=== PATIENT | female | born 1945 | race Caucasian/White ===

== ENCOUNTER → 2023-11-05 14:48 | Outpatient (REF) | payer MEDICARE, SELFPAY | LOC: RCS 14:48 | PROVIDERS: ATTENDING PHYSICIAN Internal Medicine Cardiovascular Disease | DX: I31.39 Other pericardial effusion (noninflammatory) (principal) | CPT/HCPCS: 93306 ==

== ENCOUNTER → 2024-04-16 11:02 | Outpatient (REF) | payer MEDICARE, SELFPAY | LOC: RCS 11:02 | PROVIDERS: ATTENDING PHYSICIAN Internal Medicine Rheumatology; REFERRING PHYSICIAN Internal Medicine Cardiovascular Disease | DX: M34.9 Systemic sclerosis, unspecified (principal); M34.0 Progressive systemic sclerosis; Z79.899 Other long term (current) drug therapy | CPT/HCPCS: 93306 ==

== ENCOUNTER 2024-07-16 15:33 | Inpatient (IN) | payer MEDICARE, SELFPAY ==
[2024-07-16] VITALS (7 sets, daily range): BP systolic 101–159; BP diastolic 54–65; BMI 23.6
--- NOTE | 2024-07-16 11:34 | ED.GENMED ---
History of Present Illness
General
Chief Complaint: Fall
Time Seen by Provider: 07/16/24 10:59
History of Present Illness
History of Present Illness:
79-year-old female with history of systemic scleroderma and hepatic cirrhosis presents to the emergency department for evaluation of generalized weakness. States she was unable to get herself out of bed today which resulted in a fall, denies head
strike or any injuries as a result of said fall. She was noted to be hypoxic on arrival and does not typically require baseline oxygen. Does report intermittent dry cough and shortness of breath for the past 2 weeks as well. Additionally notes
abdominal distention has been ongoing for the past 4 weeks.
Review of Systems
Review of Systems
Allergies reviewed?: Yes
All Other Systems: ROS reviewed and negative except as documented in HPI and ROS
Phy Exam
Physical Exam
Physical Exam:
GEN: Thin and frail appearing, underweight, no immediate distress
HEENT: Oral mucosa dry, no scleral icterus
Cardiac: Regular rate and rhythm, no murmurs
Lung: Mildly tachypneic, no accessory muscle use. Markedly diminished right-sided breath sounds, clear left breath sounds
Abdomen: Severe distention, grossly nontender
MSK: No gross deformity or injuries, moderate nonpitting edema to the lower extremities
Skin: Good color, no pallor or jaundice, no rashes
Neuro: AO x3, moves all extremities freely
Psych: Calm, cooperative
Course
Orders/Labs/Results
Orders:
Orders
07/16/24 11:17
Electrocardiogram (*1) Urgent
Reason for Study: Shortness of Breath
EKG- Treatment ONCE
CR Chest - 2 Views Urgent
Comment:
Reason For Exam: SOB
07/16/24 11:21
Complete Blood Count/With Diff Urgent
Comprehensive Metabolic Panel Urgent
NT-proBNP Urgent
Troponin I Urgent
07/16/24 12:16
CT Abd/Pel (IV only)-DH only Urgent
Comment:
Reason For Exam: abd distention
Urinalysis Reflex To Culture Urgent
07/16/24 14:30
Prothrombin Time Urgent
07/16/24 14:46
NH3 [Ammonia] Urgent
07/16/24 15:07
Obtain Records As Directed
Dates of Information to be Released: [id number]
Type of Information Requested: Radiology Results
Last Office Visit H&P
If Other, list type of info requested: Abd MRI, Office Note
Obtain Records from: Dr. Kinney
07/16/24 15:17
Admit/Transfer Patient As Directed
Co-Sign Provider:
Level of Care: Inpatient admission
Assign to:: Telemetry
Physician / Group: Htay
Diagnosis: Ascites
Reason for Telemetry: Arrhythmia
Date to Stop Telemetry: 07/19/24
Time to Stop Telemetry: 11:00
Reason for Hospitalization: paracentesis
Expected length of stay greater than two midnights?: Yes
ELOS- Estimated Length of Stay in days: 3
I certify the patient meets the requirements for IP care: Yes
07/16/24 15:18
PRN Pain Medication Management As Directed
May give lesser potent ordered pain med per pt: Yes
preference::
Protocol:: Medication orders for pain may be administered in a
manner that supports deferring to patient preference
when the pt is:
- Requesting an ordered lesser potent pain medication.
Least to most potent pain medications are defined
as: acetaminophen < NSAID < tramadol < opioids
(morphine, oxycodone, hydromorphone).
- Requesting a lesser dose of the same medication IF
ORDERED.
- Requesting a less intrusive route of administration
if both routes are prescribed by the provider (PO <
IV).
07/16/24 15:19
Code Status As Directed
Resuscitation Status: Do not resuscitate
Reached after discussion with pt or family/Healthcare POA: Yes
DNR Bracelet Application ONCE
07/17/24 06:00
AFP Male/Tumor Marker IN AM
07/19/24 11:00
DC Protocol for Telemetry ONCE
Abnormal Lab Results
07/16/24 07/16/24
11:21 14:30
RBC 3.68 L 10^6/uL
(4.20-5.40)
Hct 36.9 L %
(37.0-47.0)
MCV 100.3 H fL
(81.0-99.0)
MCH 33.2 H pg
(27.0-31.0)
RDW 18.3 H %
(11.5-14.5)
MPV 11.0 H fL
(7.4-10.4)
Abs Immat Gran (auto) 0.1 H 10^3/uL
(0-0.05)
Absolute Lymphs (auto) 0.5 L 10^3/uL
(1.2-3.4)
Immature Gran % 0.8 H %
(0-0.5)
Neutrophils % 84.1 H %
(42.2-75.2)
Lymphocytes % 6.2 L %
(20.5-51.1)
PT 17.4 H Sec
(11.4-14.6)
Chloride 113 H mmol/L
(98-107)
Total Bilirubin 1.9 H mg/dl
(0.2-1.3)
Alkaline Phosphatase 133 H U/L
(38-126)
Total Protein 5.2 L g/dl
(6.3-8.2)
Albumin 3.2 L g/dl
(3.5-5.0)
07/16/24 11:21
07/16/24 11:21
Vital Signs
Initial and Last Documented VS:
Initial Vital Signs
BP
123/57
07/16/24 11:00
Last Documented Vital Signs
Temp Pulse Resp BP Pulse Ox
97.7 F 60 21 159/63 98
07/16/24 11:01 07/16/24 14:30 07/16/24 15:00 07/16/24 13:00 07/16/24 15:00
MDM/Problems Addressed
MDM/Problems Addressed:
79-year-old female presenting with weakness after a minor fall. No apparent injuries after the fall. She has noted to be markedly volume overloaded with anasarca, most likely hepatic etiology. Will likely need paracentesis as well as potential
thoracentesis. She is known to have a moderate pericardial effusion however no clinical signs of cardiac instability suggesting cardiac tamponade. Will admit to the hospitalist service for further workup and management
*Critical Care Note
Total Time (30-74mins, 75-104mins- exclusive of procedures): Not Applicable
ED Attending Note
-
Portions of this chart may have been created with voice recognition software.� Occasional wrong word or��sound alike� substitutions may have occurred due to the inherent limitations of voice recognition software.
Discharge Plan
Departure
Patient Disposition: Admit
Date of Disposition: 07/16/24
Time of Disposition: 14:16
Admit to: Med/Surg
Presentation/result/management discussed w/ accepting MD/DO: Hospitalist
Discharge Problem:
Cirrhosis of liver with ascites, Acute respiratory insufficiency
Interventions
Interventions:
*Risk Screen - Suicide Last Done: 07/16/24 11:01
*General Assessment Last Done: 07/16/24 11:01
*Neglect/Abuse Screening Last Done: 07/16/24 11:01
*ED- Fall Risk Assessment Last Done: 07/16/24 11:01
*ED COVID-19 Vaccine History Last Done: 07/16/24 11:01
ED-Musculoskeletal Assessment Last Done: 07/16/24 11:01
ED- Neurological Assessment Last Done: 07/16/24 11:01
ED-Skin Assessment Last Done: 07/16/24 11:01
[2024-07-16 11:35] LABS: % Basophils 0.7 % (0-2); % Immature Granulocytes 0.8 % (0-0.5); % Lymphocytes 6.2 % (20.5-51.1); % Monocytes 6.2 % (1.7-9.3); % Neutrophils 84.1 % (42.2-75.2); Absolute Basophils 0.1 10^3/uL (0-0.2); Absolute Eosinophils 0.2 10^3/uL (0-0.7); Absolute Immature Granulocytes 0.1 10^3/uL (0-0.05); Absolute Lymphocytes 0.5 10^3/uL (1.2-3.4); Absolute Monocytes 0.5 10^3/uL (0.1-0.6); Absolute Neutrophils 6.2 10^3/uL (1.4-6.5); Hematocrit 36.9 % (37.0-47.0); Hemoglobin 12.2 g/dL (12.0-16.0); Mean Corp Hgb Conc. 33.1 g/dL (33.0-37.0); Mean Corpuscular Hgb 33.2 pg (27.0-31.0); Mean Corpuscular Volume 100.3 fL (81.0-99.0); Nucleated Red Blood Cells % 0 %; Platelet Count 204 10^3/uL (130-400); Red Blood Cell Count 3.68 10^6/uL (4.20-5.40); Red Cell Dist. Width 18.3 % (11.5-14.5); White Blood Cell Count 7.4 10^3/uL (4.8-10.8)
[2024-07-16 11:44] LABS: ALT (SGPT) 13 U/L (0-35); AST (SGOT) 26 U/L (14-36); Albumin 3.2 g/dl (3.5-5.0); Alkaline Phosphatase 133 U/L (38-126); Blood Urea Nitrogen 10 mg/dl (7-17); Calcium 9.2 mg/dl (8.4-10.2); Carbon Dioxide 22 mmol/L (22-30); Chloride 113 mmol/L (98-107); Estimated Creatinine Clearance 49 ml/min; Glucose 90 mg/dl (70-99); Potassium 3.6 mmol/L (3.5-5.1); Sodium 141 mmol/L (135-145); Total Bilirubin 1.9 mg/dl (0.2-1.3); Total Protein 5.2 g/dl (6.3-8.2); eGFR > 60.00
[2024-07-16 11:55] LABS: NT-proBNP 789 pg/ml; Troponin I 0.013 ng/ml
--- NOTE | 2024-07-16 14:39 | W.PN.UPDATE ---
Addendum entered and electronically signed by Israel Mckinney MD 07/16/24 15:26:
Correction: patient is DNR confirmed at bed side in the presence of son and AP , not full code
Original Note:
Update Note
Progress Note Update
This note serves as an addendum to the H&P by parts counterman CECELIA Praveena ABRAHAM
HPI:
79F No prior DH Visits HX systemic scleroderma and hepatic cirrhosis seen at ER
- for evaluation of generalized weakness.
- was unable to get herself out of bed today which resulted in a fall
- denies head strike or any injuries as a result of said fall.
- report intermittent dry cough and shortness of breath for the past 2 weeks as well.
- abdominal distention has been ongoing for the past 4 weeks
At ER:
- hypoxic on arrival and does not typically require baseline oxygen.
Reviewed VS:
Vital Signs
Temp Pulse Resp BP Pulse Ox
97.7 F 69 20 159/63 93
07/16/24 11:01 07/16/24 13:15 07/16/24 13:15 07/16/24 13:00 07/16/24 13:15
PE
Gen: Thin and frail, looks underweight, no immediate distress
HEENT: no scleral icterus
Neck: supple
Lungs: tachypneic,, markedly diminished right-sided breath sounds, clear left breath sounds
Cor: RRR S1 S2
Abdomen: Severe distention, grossly nontender
SLIP COVER MAKER: AAO3
MS:
Psych: good insight , good judgement
Labs
07/16/24 07/16/24
11:21 14:30
WBC 7.4
Hgb 12.2
Plt Count 204
INR Pending
Chloride 113 H
Creatinine 0.7
eGFR > 60.00
Total Bilirubin 1.9 H
AST 26
ALT 13
Alkaline Phosphatase 133 H
Troponin I 0.013
Tpo-N-Qvbtiwmxphm Pept 789
Total Protein 5.2 L
Albumin 3.[address] AP (IV only)- only
- Large volume abdominopelvic ascites.
- Moderate pericardial effusion.
- Small bilateral pleural effusions, right greater than left.
- Hepatic cirrhosis.
- 1.2 cm enhancing lesion at the periphery of the posterior inferior right hepatic lobe.
- This is concerning for a small hepatocellular carcinoma in the setting of hepatic cirrhosis.
- Portal enteropathy.
04/16/24 TTE
- LVEF 60-65%, by visual assessment.
- No regional wall motion abnormalities are seen.
- Stage II diastolic dysfunction suggestive of abnormal relaxation and increased filling pressures.
-Normal right ventricular size and function.
-Severely dilated left atrium. Moderately to severely dilated right atrium.
-Moderate regurgitation.
-Mild aortic stenosis; peak/mean gradients 21/10 mmHg, calculated FIONA 1.5 cm2.
No aortic regurgitation is seen.
-Small to moderate pericardial effusion anteriorly and posteriorly
(noncircumferential); measures greatest at 1.3 cm posteriorly.
No evidence of hemodynamic compromise.
-Left pleural effusion present.
NO PRIOR hospitalist admission:
ASSESSMENT & PLAN
Pending Rx reconciliation
Anasarca
Large volume abdominopelvic ascites.
Moderate pericardial effusion.
Small bilateral pleural effusions, right greater than left.
-Underlying Hepatic cirrhosis.
-c/w Spironolactone
- IR consult for Dx-tic and Rx-tic paracentesis
- GI consult ( Known to Dr Gutierrez from [facility] and Dr Douglass from GI )
1.2 cm enhancing lesion at the periphery of the posterior inferior right hepatic lobe.
- concerning for a small hepatocellular carcinoma in the setting of hepatic cirrhosis.
- To obtain prior MRI of liver form [facility] ( requested )
- MRI MRI without and with intravenous contrast
- AFP in AM
Clinically no evidence of hepatic encephalopathy
General weakens and acute gait dysfunction
Use walker at home for chr ambulatory dysfunction
Independently living
- urgent NH3 level
- PT/OT
HX secondary PHT suspect due to systemic scleroderma
- c/w DISTRIBUTOR SALES MANAGER Sildenafil & Ambrisentan
HX valvular heart dz and clinical systolic murmur
- Moderate mitral regurgitation.
- Mild aortic stenosis; peak/mean gradients 21/10 mmHg, calculated FIONA 1.5 cm2.
- No aortic regurgitation is seen.
HX systemic scleroderma
- on MTX
DVT Px: SCD
Full code
IP MS
--- NOTE | 2024-07-16 14:39 | HPS.HSE ---
Family Physician
-
Family Physician: Shahid Ponce Jr.
Chief Complaint
-
Weakness and Abdominal Distension
History of Present Illness
Patient is a 79 y/o female past medical history of systemic scleroderma who presents with weakness and increasing abdominal distention. Patient reports abdomen has slowly become distended over the past 6 weeks. She is unable to consume a lot of
food as feel full very quickly due to the distention. She reports worsening weakness which resulted in a fall today which prompter her presentation to the emergency department. She reports mild shortness of the breath over the past few weeks. She
denies fevers, sweats or chills.
Medical History
Past Medical History
Past Medical History: Reports Other
Additional Past Medical History:
Systemic Scleroderma
Pulmonary Hypertension
Cirrhosis
Pericardial Effusion
Past Surgical History: Reports Other
Additional Past Surgical History:
Appendectomy
Hysterectomy
Tonsillectomy
Social History
Tobacco: Non-smoker
Alcohol: None
Family History
Family History: Not pertinent
Allergies / Home Medications
Allergies reflects when Allergies were last updated in [employer].
Home Medications with original date entered in [employer]
Allergy/Medication List:
Allergies
Allergy/AdvReac Type Severity Reaction Status Date / Time
No Known Allergies Allergy Verified 07/16/24 11:23
Home Medications
albuterol sulfate 90 mcg/actuation aerosol inhaler 2 puff inhalation Q4HPRN PRN shortness of breath 07/16/24
ambrisentan 10 mg tablet 10 mg PO DAILY 07/16/24
amlodipine 2.5 mg tablet 2.5 mg PO HS 07/16/24
aspirin 81 mg chewable tablet 81 mg PO DAILY 07/16/24
folic acid 1 mg tablet 1 mg PO DAILY 07/16/24
methotrexate sodium 2.5 mg tablet 7.5 mg PO WEEKLY 07/16/24
pregabalin 200 mg capsule 200 mg PO BID 07/16/24
sildenafil (pulm.hypertension) 20 mg tablet 20 mg PO BID 07/16/24
spironolactone 100 mg tablet 100 mg PO DAILY 07/16/24
Review of Systems
-
A 12 point ROS was completed and negative except as noted: Yes
Constitutional: Denies Fever
Respiratory: Reports Trouble Breathing
Cardiac: Denies Chest Pain or Palpitations
Abdomen/GI: Reports Anorexia; Denies Abdominal Pain, Nausea or Vomiting
Physical Exam
Vital Signs
Vital Signs
Temp Pulse Resp BP Pulse Ox
97.7 F 69 20 159/63 93
07/16/24 11:01 07/16/24 13:15 07/16/24 13:15 07/16/24 13:00 07/16/24 13:15
Physical Exam
General: Comfortable, Conversant and Other (Frail appearing)
HEENT: Anicteric and Other (Dry lips )
Respiratory: Non Labored Respirations and Decreased Breath Sounds (Bilateral bases)
Cardiac: S1/S2, Regular Rhythm and Murmur (Systolic )
GI: Non Tender and Distended (Positive Fluid Wave)
Rectal: Deferred by Provider
Musculoskeletal: No Clubbing, No Cyanosis, No Edema and Other (Tapping of the finger tips consistent with scleroderma)
Skin: Warm and Dry
Neuro: Awake, Alert, Oriented and Nonfocal/grossly intact
Psych: Calm
Laboratory Results
-
07/16/24 11:21
07/16/24 11:21
Laboratory Results
Total Bilirubin 1.9 mg/dl (0.2-1.3) H 07/16/24 11:21
AST 26 U/L (14-36) 07/16/24 11:21
ALT 13 U/L (0-35) 07/16/24 11:21
Alkaline Phosphatase 133 U/L (38-126) H 07/16/24 11:21
Troponin I 0.013 ng/ml 07/16/24 11:21
Chest X-Ray:
Small bilateral pleural effusions.
Mild elevation of the right hemidiaphragm.
Findings suggesting moderate right lower lobe pneumonia.
Mild cardiomegaly
Abd/Pelvis CT Scan:
Large volume abdominopelvic ascites.
Moderate pericardial effusion.
Small bilateral pleural effusions, right greater than left.
Hepatic cirrhosis.
1.2 cm enhancing lesion at the periphery of the posterior inferior right hepatic lobe. This is concerning for a small hepatocellular carcinoma in the setting of hepatic cirrhosis. No prior imaging of the abdomen is currently available for direct
comparison. A follow-up abdominal MRI without and with intravenous contrast is recommended on a routine basis.
Portal enteropathy.
Echo April 2024:
No regional wall motion abnormality with EF 60-65%. Stage II diastolic dysfunction. Moderate mitral regurgitation. Mild aortic stenosis. Small to moderate pericardial effusion.
Data Reviewed
-
Diagnostic Radiology: Report Reviewed by me
CT Scan: Report Reviewed by me
Lab Data: Labs Reviewed by me
Old Records: Reviewed
Impression/Plan
-
New Onset Ascites suspect secondary to Cirrhosis
-Consult IR for diagnostic and therapeutic paracentesis
-Consult GI
Hepatic Lesion noted on CT scan
-Check Abd MRI
-Check AFP
-Patient has been following with Dr. Kinney and reports prior MRI about 9 months - Will attempt to obtain records
Pericardial Effusion
-Small/Moderate pericardial effusion seen on CT today and prior Echo from April
-Suspect likely stable
-Patient follows with Dr. Gee
-Consider repeat Echo
Systemic Scleroderma with secondary Pulmonary Hypertension and Cirrhosis
-Continue sildenafil and ambrisentan for pulmonary hypertension
-Continue amlodipine
-Continue pregabalin
-Patient maintained on methotrexate as outpatient
DVT proph: Lovenox
Code Status: DNR
[2024-07-16 14:51] LABS: PT 17.4 Sec (11.4-14.6)
--- NOTE | 2024-07-16 16:09 | CM ---
Reviewed the chart notes and spoke with the patient and her son at the bedside. The patient resides alone in a one story home with two steps to enter. The patient has a cane and shower chair in home. The patient reports no VN or SNF in the past.
The patient confirmed her pharmacy of choice is [facility]. CM continues to be available to patient/family and is monitoring medical plan for needs at discharge.
Plan: Discharge plans will depend on the patient's progress.
[2024-07-16 16:36] LABS: Ammonia < 9 umol/L (9-30)
[2024-07-16] MEDS: LOVENOX 40 MG SC (17:55)
[2024-07-16] MEDS: NORVASC 2.5 MG PO (20:25)
[2024-07-16] MEDS: REVATIO 20 MG PO (20:25)
[2024-07-16] MEDS: LYRICA 200 MG PO (20:25)
--- NOTE | 2024-07-16 20:36 | CON.GI ---
Consultation
-
Date/Time Consultation Requested: 07/16/24 4pm
Date/Time Consultation Performed: 07/16/24 at 6pm
Requesting Provider: josefina
Performing Provider: douglas
Reason for Consultation: abdominal distention
Medical History
Chief Complaint / HPI
Chief Complaint: abdominal distention
History of Present Illness:
Pt is a 79 y/o with a hx of scleroderma, raynauds, pulmonary htn and cirrhosis (pt denies) who feel out of bed and came to the hospital. She states that she has been having a recent increase in girth that is making it harder to move. She does not
have any pain or fevers. She has never had that before. She follows with Dr. Roy for her liver and thinks she has autoimmune disease. She denies confusion or prior ascites. She has also had several EGDs and colonoscopys in the past but not at
our institution. She did have a CT scan in the ER and it did show moderate amount of abdominal ascites as well as cirrhosis with a 1.2 liver lesion.
Past Medical History
Past Medical History: Other (scleroderma, pulmonary htn, cirrhosis)
Past Surgical History: Appendectomy and Gynecological
Social History
Tobacco: Non-Smoker
Family History
Family History: Reviewed & Not Pertinent
Allergies / Home Medications
Allergy/AdvReac Type Severity Reaction Status Date / Time
No Known Allergies Allergy Verified 07/16/24 11:23
�Medication �Instructions �Recorded
albuterol sulfate 90 mcg/actuation 2 puff inhalation Q4HPRN PRN 07/16/24
aerosol inhaler shortness of breath
ambrisentan 10 mg tablet 10 mg PO DAILY 07/16/24
amlodipine 2.5 mg tablet 2.5 mg PO HS 07/16/24
aspirin 81 mg chewable tablet 81 mg PO DAILY 07/16/24
folic acid 1 mg tablet 1 mg PO DAILY 07/16/24
methotrexate sodium 2.5 mg tablet 7.5 mg PO WEEKLY 07/16/24
pregabalin 200 mg capsule 200 mg PO BID 07/16/24
sildenafil (pulm.hypertension) 20 20 mg PO BID 07/16/24
mg tablet
spironolactone 100 mg tablet 100 mg PO DAILY 07/16/24
Review of Systems
-
All other systems: A 12 pt ROS was Negative except as stated above in HPI
Vital Signs
Temp Pulse Resp BP Pulse Ox
98.1 F 82 16 113/63 97
07/16/24 19:42 07/16/24 19:42 07/16/24 19:42 07/16/24 19:42 07/16/24 19:42
Physical Exam
Exam
General: No Apparent Distress
HEENT: Anicteric
Cardiac: S1/S2
GI: Non Tender and Distended (ascites)
Musculoskeletal: Other (sclerodactyly with shortened digits)
Neuro: Awake, Alert and Oriented
Psych: Calm
Results
WBC 7.4 10^3/uL (4.8-10.8) 07/16/24 11:21
Hgb 12.2 g/dL (12.0-16.0) 07/16/24 11:21
Hct 36.9 % (37.0-47.0) L 07/16/24 11:21
MCV 100.3 fL (81.0-99.0) H 07/16/24 11:21
Plt Count 204 10^3/uL (130-400) 07/16/24 11:21
Absolute Neuts (auto) 6.2 10^3/uL (1.4-6.5) 07/16/24 11:21
PT 17.4 Sec (11.4-14.6) H 07/16/24 14:30
INR 1.40 07/16/24 14:30
Sodium 141 mmol/L (135-145) 07/16/24 11:21
Potassium 3.6 mmol/L (3.5-5.1) 07/16/24 11:21
Chloride 113 mmol/L (98-107) H 07/16/24 11:21
Carbon Dioxide 22 mmol/L (22-30) 07/16/24 11:21
BUN 10 mg/dl (7-17) 07/16/24 11:21
Creatinine 0.7 mg/dL (0.6-1.0) 07/16/24 11:21
Calcium 9.2 mg/dl (8.4-10.2) 07/16/24 11:21
Total Bilirubin 1.9 mg/dl (0.2-1.3) H 07/16/24 11:21
AST 26 U/L (14-36) 07/16/24 11:21
ALT 13 U/L (0-35) 07/16/24 11:21
Alkaline Phosphatase 133 U/L (38-126) H 07/16/24 11:21
Assessment / Plan
-
Pt is a 79 y/o woman with a hx of scleroderma, CREST, pulmonary hypertension, cirrhosis ?AIH, liver lesion and new ascites. for now:
1. get records from Dr. Roy
2. check AFP
3. paracentesis for diagnostic and therapeutic purposes
4. not encephalopathic
5. follow PT and liver tests
Data Reviewed
-
CT Scan: Report Reviewed by me
-
-
Thank you for consultation and allowing me to participate in the patient's care. Please call the executive search consultant GI physician during the after hours with any questions or concerns.
[2024-07-17] VITALS (12 sets, daily range): BP systolic 77–117; BP diastolic 42–54; BMI 22.7
[2024-07-17] MEDS: TYLENOL 650 MG PO (02:11)
[2024-07-17 06:49] LABS: Hematocrit 30.8 % (37.0-47.0); Hemoglobin 10.2 g/dL (12.0-16.0); Mean Corp Hgb Conc. 33.1 g/dL (33.0-37.0); Mean Corpuscular Hgb 33.2 pg (27.0-31.0); Mean Corpuscular Volume 100.3 fL (81.0-99.0); Mean Platelet Volume 11.1 fL (7.4-10.4); Platelet Count 164 10^3/uL (130-400); Red Blood Cell Count 3.07 10^6/uL (4.20-5.40); Red Cell Dist. Width 18.3 % (11.5-14.5); White Blood Cell Count 5.8 10^3/uL (4.8-10.8)
[2024-07-17 06:59] LABS: ALT (SGPT) < 10 U/L (0-35); AST (SGOT) 22 U/L (14-36); Albumin 2.4 g/dl (3.5-5.0); Alkaline Phosphatase 99 U/L (38-126); Blood Urea Nitrogen 11 mg/dl (7-17); Calcium 8.9 mg/dl (8.4-10.2); Carbon Dioxide 23 mmol/L (22-30); Chloride 114 mmol/L (98-107); Estimated Creatinine Clearance 49 ml/min; Glucose 68 mg/dl (70-99); Potassium 3.6 mmol/L (3.5-5.1); Sodium 141 mmol/L (135-145); Total Bilirubin 1.3 mg/dl (0.2-1.3); Total Protein 4.3 g/dl (6.3-8.2); eGFR > 60.00
[2024-07-17 07:48] LABS: Urine Albumin 2+ (Neg - Trace); Urine Bilirubin 1+ (Negative); Urine Character Clear (Clear); Urine Color Yellow; Urine Glucose Negative (Negative); Urine Ketone Negative (Negative); Urine Leukocyte 1+ (Negative); Urine Nitrite Negative (Negative); Urine Occult Blood Negative (Negative); Urine Specific Gravity 1.015 (<1.030); Urine Urobilinogen 2+ (Neg - 1+)
[2024-07-17 07:56] LABS: Glucose - Point of Care 89 mg/dl (70-99)
[2024-07-17] MEDS: LYRICA 200 MG PO ×2 (07:59→21:09)
[2024-07-17] MEDS: FOLVITE 1 MG PO (07:59)
[2024-07-17] MEDS: REVATIO 20 MG PO (07:59)
[2024-07-17] MEDS: LOW STRENGTH ASPIRIN 81 MG PO (07:59)
[2024-07-17] MEDS: ALDACTONE 100 MG PO (08:01)
[2024-07-17 08:34] LABS: Urine Red Blood Cell 0-2 /HPF (0-2)
--- NOTE | 2024-07-17 09:21 | W.PN.HOSP.TC ---
Today's Communication/Plan
-
IV albumin. Paracentesis. MRCP. Echo
Assessment / Plan
Assessment / Plan
Physical Exam
General: Chronically ill, frail appearing
HEENT: Anicteric and Other (Dry lips )
Respiratory: Decreased breath sounds, no crackles or wheezes.
Cardiac: S1/S2, Regular Rhythm and systolic murmur
GI: Non Tender and Distended, positive fluid wave
Musculoskeletal: No Clubbing, No Cyanosis, No Edema and Other (Tapping of the finger tips consistent with scleroderma)
Skin: Warm and Dry
Neuro: Awake, Alert, Oriented and Nonfocal/grossly intact
Psych: Calm
A/P:
New Onset Ascites suspect secondary to Cirrhosis
- Status post diagnostic and therapeutic paracentesis. No preliminary evidence of SBP. Follow-up rest of the studies.
-GI consult appreciated
- Discussed with son at bedside
Hypotension post paracentesis (asymptomatic)
- Give IV albumin today
-Hold Norvasc, spironolactone, and sildenafil.
-Plan for echo
- Monitor blood pressure closely
Hepatic Lesion noted on CT scan
-Check Abd MRI
-Check AFP
-Patient has been following with Dr. Kinney and reports prior MRI about 9 months - Will attempt to obtain records
- Repeat LFTs and INR in a.m.
Pericardial Effusion
-Small/Moderate pericardial effusion seen on CT today and prior Echo from April
-No clear signs of tamponade physiology but will check echo
-Patient follows with Dr. Gee as outpatient.
- Will repeat Echo in a.m.
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
-Hold sildenafil for now.
-Patient tells me she is no longer on methotrexate due to elevated LFTs. Discontinued now.
-Continue pregabalin
DVT proph: Lovenox
Code Status: DNR
Total time spent on today's encounter was 52 minutes which included time spent in counseling the patient/family regarding diagnosis and treatment plan as listed above, goals of care, and symptom management. Case was discussed with nursing staff,
specialists, and care coordinators/case management. All labs and imaging personally reviewed by me. Remainder the time spent in detailed review of previous records, lab data, imaging, and other medical provider documentation.
Anticipated Discharge: > 48 hours
Subjective/Interval History
-
Date of Service: July 17, 2024
Patient looks frail overall. Had paracentesis by the time of my evaluation. Had transient hypotension as well. No lightheadedness, no nausea vomiting afebrile
Objective Data
-
Labs:
Laboratory Results
07/17/24
05:22
WBC 5.8
Hgb 10.2 L
Hct 30.8 L
Plt Count 164
Sodium 141
Potassium 3.6
Chloride 114 H
Carbon Dioxide 23
BUN 11
Creatinine 0.7
Glucose 68 L
Calcium 8.9
Total Bilirubin 1.3
AST 22
ALT < 10
Alkaline Phosphatase 99
Vital Signs:
Vital Signs
Temp Pulse Resp BP Pulse Ox
97.7 F 18 18 112/59 95
07/17/24 07:36 07/17/24 08:01 07/17/24 07:36 07/17/24 08:01 07/17/24 07:36
--- NOTE | 2024-07-17 11:28 | PTCARENOTE ---
RICK RN- stopped draining during paracentesis due to BP 90/44 map 58. 4500ml of yellow fluid drained. Dr. Kern and Dr Fang aware of bp and amount removed.
[2024-07-17 12:06] LABS: Body Fluid WBC 70 /CUMM
[2024-07-17 12:09] LABS: Body Fluid Second Tech AP
[2024-07-17 12:13] LABS: Body Fluid Albumin < 1.0 g/dl; Body Fluid Amylase < 30 U/L; Body Fluid LDH 84 U/L; Body Fluid Protein < 2.0 g/dl
--- NOTE | 2024-07-17 13:24 | W.PN.GI.CBS2 ---
Today's Communication / Plan
-
paracentesis
Assessment / Plan
-
Pt is a 79 y/o woman with a hx of scleroderma, CREST, pulmonary hypertension, cirrhosis ?AIH, liver lesion and new ascites. for now:
1. get records from Dr. Roy
2. await AFP
3. paracentesis
4. not encephalopathic
5. follow PT and liver tests
Subjective
Subjective
Date of Service: July 17, 2024
Pt seen before paracentesis, no abdominal pain
Objective
Data Reviewed
Laboratory Data:
Laboratory Results
07/17/24 05:22
07/17/24 05:22
Laboratory Results
PT 17.4 Sec (11.4-14.6) H 07/16/24 14:30
INR 1.40 07/16/24 14:30
Magnesium 2.0 mg/dl (1.6-2.3) 07/17/24 05:22
Total Bilirubin 1.3 mg/dl (0.2-1.3) 07/17/24 05:22
AST 22 U/L (14-36) 07/17/24 05:22
ALT < 10 U/L (0-35) 07/17/24 05:22
Alkaline Phosphatase 99 U/L (38-126) 07/17/24 05:22
Vital Signs and I&O:
Vital Signs
Temp Pulse Resp BP Pulse Ox
97.7 F 81 18 107/47 96
07/17/24 11:35 07/17/24 11:35 07/17/24 11:35 07/17/24 11:35 07/17/24 11:35
Physical Exam
Physical Exam
HEENT: Anicteric
Cardiology: S1 and S2
GI: Distended (ascites)
Neuro: Non Focal
[2024-07-17] MEDS: ALBUMIN 5% 250 IV ×2 (14:57→16:18)
[2024-07-17] MEDS: LOVENOX 40 MG SC (17:20)
[2024-07-18 03:11] VITALS: BP 110/55
[2024-07-18 06:00] VITALS: BMI 20.9
[2024-07-18 06:43] LABS: INR 1.52; PT 18.6 Sec (11.4-14.6)
[2024-07-18 06:51] LABS: Hematocrit 32.4 % (37.0-47.0); Hemoglobin 10.7 g/dL (12.0-16.0); Mean Platelet Volume 10.8 fL (7.4-10.4); Platelet Count 167 10^3/uL (130-400); Red Blood Cell Count 3.24 10^6/uL (4.20-5.40); Red Cell Dist. Width 17.8 % (11.5-14.5); White Blood Cell Count 6.3 10^3/uL (4.8-10.8)
[2024-07-18 07:03] LABS: ALT (SGPT) < 10 U/L (0-35); AST (SGOT) 21 U/L (14-36); Albumin 2.4 g/dl (3.5-5.0); Alkaline Phosphatase 84 U/L (38-126); Blood Urea Nitrogen 10 mg/dl (7-17); Calcium 8.5 mg/dl (8.4-10.2); Carbon Dioxide 25 mmol/L (22-30); Chloride 113 mmol/L (98-107); Estimated Creatinine Clearance 57 ml/min; Glucose 75 mg/dl (70-99); Potassium 3.5 mmol/L (3.5-5.1); Sodium 140 mmol/L (135-145); eGFR > 60.00
[2024-07-18] MEDS: FOLVITE 1 MG PO (07:39)
[2024-07-18] MEDS: LOW STRENGTH ASPIRIN 81 MG PO (07:39)
[2024-07-18] MEDS: LYRICA 200 MG PO ×2 (07:39→19:44)
[2024-07-18 07:46] VITALS: BP 105/48
--- NOTE | 2024-07-18 10:26 | W.PN.HOSP.TC ---
Addendum entered and electronically signed by Abrahan Ford MD 07/18/24 14:03:
MRI abd:
1. SEVERE HEPATIC CIRRHOSIS.
2. 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
3. LARGE VOLUME ASCITES.
4. Moderate pericardial effusion.
5. Mild cardiomegaly.
6. Moderate-sized right pleural effusion.
7. Severe right lower lobe and moderate left lower lobe subpleural airspace consolidation.
8. Severe discogenic degenerative disease at L4/L5.
9. Severe anasarca.
Case discussed with GI, adding Lasix/Aldactone. Cleared for d/c from GI's standpoint.
Echo pending.
PT/OT ordered
Goal for d/c tomorrow.
Total time spent on today's encounter was 50 minutes which included time spent in counseling the patient/family regarding diagnosis and treatment plan as listed above, goals of care, and symptom management. Case was discussed with nursing staff,
specialists, and care coordinators/case management. All labs and imaging personally reviewed by me. Remainder the time spent in detailed review of previous records, lab data, imaging, and other medical provider documentation.
Original Note:
Today's Communication/Plan
-
See plan
Assessment / Plan
Assessment / Plan
Gen: NAD, AAOx3, appears chronically ill malnourished.
Eyes: EOMI, PERRLA, no scleral icterus.
Neck: supple.
CV: RRR, +S1/S2, no m/r/g.
Resp: CTAB anteriorly, no rales, wheezes, or rhonchi.
Abd: +BS, soft, NT, moderate distention with ascites
Skin: No rashes. Tight skin consistent with scleroderma, sausage digits of the fingers
Neuro: CN 2-12 intact, non-focal.
Psych: Normal mood and affect.
CT A/P 6/7/25: Large volume abdominopelvic ascites. Moderate pericardial effusion. Small bilateral pleural effusions, right greater than left. Hepatic cirrhosis. 1.2 cm enhancing lesion at the periphery of the posterior inferior right hepatic lobe.
This is concerning for a small hepatocellular carcinoma in the setting of hepatic cirrhosis. No prior imaging of the abdomen is currently available for direct comparison. A follow-up abdominal MRI without and with intravenous contrast is recommended
on a routine basis. Portal enteropathy.
CXR 07/16/24: Small bilateral pleural effusions. Mild elevation of the right hemidiaphragm. Findings suggesting moderate right lower lobe pneumonia. Mild cardiomegaly
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
-s/p paracentesis 07/17/24 for 4500cc. No SBP, follow cytology.
-had hypotension after paracentesis, albumin given, aldactone/norvasc on hold. Echo ordered.
-GI following
Hepatic Lesion noted on CT scan:
-Check Abd MRI
-Check AFP
-INR stable
-LFTs unremarkable
-Patient has been following with Dr. Kinney and reports prior MRI about 9 months. Will attempt to obtain records.
Pericardial Effusion
-Small/Moderate pericardial effusion seen on CT on admission and prior Echo from April
-check echo
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
-Holding sildenafil with hypotension
-was on MTX in the pasted, no longer on it
-Continue pregabalin
DNR/Lovenox
Anticipated Discharge: 24 - 48 hours
Subjective/Interval History
-
Date of Service: July 18, 2024
Denies chest pain or shortness of breath.
Objective Data
-
Labs:
Laboratory Results
07/18/24
05:59
WBC 6.3
Hgb 10.7 L
Hct 32.4 L
Plt Count 167
PT 18.6 H
INR 1.52
Sodium 140
Potassium 3.5
Chloride 113 H
Carbon Dioxide 25
BUN 10
Creatinine 0.6
Glucose 75
Calcium 8.5
Total Bilirubin 1.0
AST 21
ALT < 10
Alkaline Phosphatase 84
Vital Signs:
Vital Signs
Temp Pulse Resp BP Pulse Ox
98.2 F 74 18 105/48 97
07/18/24 07:46 07/18/24 07:46 07/18/24 07:46 07/18/24 07:46 07/18/24 07:46
I&O
07/17/24 07/18/24 07/19/24
06:59 06:59 06:59
Intake Total 240 / 240 320 / 320
Output Total 125 / 125
Balance 115 / 115 320 / 320
[2024-07-18 11:28] VITALS: BP 116/45
--- NOTE | 2024-07-18 13:54 | W.PN.GI.CBS2 ---
Today's Communication / Plan
-
start diuretics
Assessment / Plan
-
Pt is a 79 y/o woman with a hx of scleroderma, CREST, pulmonary hypertension, cirrhosis ?AIH, liver lesion and new ascites. for now:
1. will need f/u with Dr. Kinney
2. MRI looks like dysplastic nodules in liver, afp pending
3. paracentesis done and not
4. not encephalopathic
5. start aldactone 50 and lasix 20mg, creatinine fine after tap
Subjective
Subjective
Date of Service: July 18, 2024
Pt with tap yesterday. wbc not c/w SBP
Objective
Data Reviewed
Laboratory Data:
Laboratory Results
07/18/24 05:59
07/18/24 05:59
Laboratory Results
PT 18.6 Sec (11.4-14.6) H 07/18/24 05:59
INR 1.52 07/18/24 05:59
Magnesium 2.0 mg/dl (1.6-2.3) 07/17/24 05:22
Total Bilirubin 1.0 mg/dl (0.2-1.3) 07/18/24 05:59
AST 21 U/L (14-36) 07/18/24 05:59
ALT < 10 U/L (0-35) 07/18/24 05:59
Alkaline Phosphatase 84 U/L (38-126) 07/18/24 05:59
Vital Signs and I&O:
Vital Signs
Temp Pulse Resp BP Pulse Ox
98.4 F 68 18 116/45 97
07/18/24 11:28 07/18/24 11:28 07/18/24 11:28 07/18/24 11:28 07/18/24 11:28
I&O
07/17/24 07/18/24 07/19/24
06:59 06:59 06:59
Intake Total 240 / 240 560 / 560
Output Total 125 / 125 300 / 300
Balance 115 / 115 260 / 260
Physical Exam
Physical Exam
GI: Soft and Non Distended
[2024-07-18] MEDS: ALDACTONE 50 MG PO (14:16)
[2024-07-18] MEDS: LASIX 20 MG PO (14:17)
[2024-07-18 15:20] VITALS: BP 105/52
[2024-07-18] MEDS: LOVENOX 40 MG SC (17:09)
[2024-07-18 18:48] LABS: AFP Male/Tumor Marker 1.96 ng/ml
[2024-07-18 19:45] VITALS: BP 118/50
[2024-07-18 23:44] VITALS: BP 107/50
[2024-07-19 03:57] VITALS: BP 102/48
[2024-07-19 06:00] VITALS: BMI 21.0
--- NOTE | 2024-07-19 06:59 | W.PN.GI.CBS2 ---
Today's Communication / Plan
-
Please see assessment and plan for details.
Assessment / Plan
-
1. Ascites: with likely underlying cirrhosis, unclear etiology though has followed with Dr. Roy for questionable autoimmune hepatitis, negative for SBP, overall doing well. Alpha-fetoprotein was negative. At this point she is okay to DC from
GI standpoint with salt restriction and diuretics which were started. 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
We will sign off for now, please go back with any further questions.
Subjective
Subjective
Date of Service: July 19, 2024
Patient feeling better today, no significant abdominal pain, nausea or vomiting, tolerating diet without difficulty.
Objective
Data Reviewed
Laboratory Data:
Laboratory Results
07/18/24 05:59
07/18/24 05:59
Laboratory Results
PT 18.6 Sec (11.4-14.6) H 07/18/24 05:59
INR 1.52 07/18/24 05:59
Magnesium 2.0 mg/dl (1.6-2.3) 07/17/24 05:22
Total Bilirubin 1.0 mg/dl (0.2-1.3) 07/18/24 05:59
AST 21 U/L (14-36) 07/18/24 05:59
ALT < 10 U/L (0-35) 07/18/24 05:59
Alkaline Phosphatase 84 U/L (38-126) 07/18/24 05:59
Vital Signs and I&O:
Vital Signs
Temp Pulse Resp BP Pulse Ox
98.3 F 63 16 102/48 95
07/19/24 03:57 07/19/24 03:57 07/19/24 03:57 07/19/24 03:57 07/19/24 03:57
I&O
07/17/24 07/18/24 07/19/24
06:59 06:59 06:59
Intake Total 240 / 240 880 / 880
Output Total 125 / 125 300 / 300
Balance 115 / 115 580 / 580
Physical Exam
Physical Exam
General: NAD
Abdomen: normal bowel sounds, soft, no tenderness, no masses or bruits, mild ascites
[2024-07-19 07:30] VITALS: BP 114/54
[2024-07-19] MEDS: FOLVITE 1 MG PO (09:24)
[2024-07-19] MEDS: LOW STRENGTH ASPIRIN 81 MG PO (09:24)
[2024-07-19] MEDS: LYRICA 200 MG PO ×2 (09:24→20:05)
[2024-07-19] MEDS: LASIX 20 MG PO (09:24)
[2024-07-19] MEDS: ALDACTONE 50 MG PO (09:24)
[2024-07-19 10:35] VITALS: BP 122/59; PULSE 80; O2SAT 98
--- NOTE | 2024-07-19 10:59 | W.PN.HOSP.TC ---
Addendum entered and electronically signed by Abrahan Ford MD 07/19/24 14:27:
Chest x-ray reviewed. While I find it hard to believe that the patient has bacterial pneumonia it is hard to ignore the last 2 chest x-rays. She is afebrile, does not have a leukocytosis, and has no pulmonary symptoms such as cough. She did
saturate well on room air with ambulation today. Will start IV Vanco/Zosyn, check MRSA screen. Cannot check a procal with cirrhosis. Should the patient not have any clinical deterioration over the next 18 to 24 hours she will be discharged
tomorrow on oral antibiotics.
Total time spent on today's encounter was 50 minutes which included time spent in counseling the patient/family regarding diagnosis and treatment plan as listed above, goals of care, and symptom management. Case was discussed with nursing staff,
specialists, and care coordinators/case management. All labs and imaging personally reviewed by me. Remainder the time spent in detailed review of previous records, lab data, imaging, and other medical provider documentation.
Original Note:
Today's Communication/Plan
-
see plan
Assessment / Plan
Assessment / Plan
Gen: NAD, AAOx3, appears chronically ill malnourished.
Eyes: EOMI, PERRLA, no scleral icterus.
Neck: supple.
CV: remains RRR, +S1/S2, no m/r/g.
Resp: dec BS R base, faint rales L base
Abd: +BS, soft, NT, moderate distention with ascites
Skin: No rashes. remains with tight skin consistent with scleroderma, sausage digits of the fingers
Neuro: CN 2-12 intact, non-focal.
Psych: Normal mood and affect.
CT A/P 07/16/24: Large volume abdominopelvic ascites. Moderate pericardial effusion. Small bilateral pleural effusions, right greater than left. Hepatic cirrhosis. 1.2 cm enhancing lesion at the periphery of the posterior inferior right hepatic lobe.
This is concerning for a small hepatocellular carcinoma in the setting of hepatic cirrhosis. No prior imaging of the abdomen is currently available for direct comparison. A follow-up abdominal MRI without and with intravenous contrast is recommended
on a routine basis. Portal enteropathy.
CXR 07/16/24: Small bilateral pleural effusions. Mild elevation of the right hemidiaphragm. Findings suggesting moderate right lower lobe pneumonia. Mild cardiomegaly.
MRI abd 07/18/24:
1. SEVERE HEPATIC CIRRHOSIS.
2. 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
3. LARGE VOLUME ASCITES.
4. Moderate pericardial effusion.
5. Mild cardiomegaly.
6. Moderate-sized right pleural effusion.
7. Severe right lower lobe and moderate left lower lobe subpleural airspace consolidation.
8. Severe discogenic degenerative disease at L4/L5.
9. Severe anasarca.
Echo: Normal biventricular size and systolic function without regional wall motion abnormality. LVEF 60-65%. Moderate circumferential pericardial effusion without evidence of hemodynamic compromise. Mild aortic stenosis.
Mild tricuspid regurgitation. PASP 35-40 mmHg. Compared to prior echocardiogram in April 2024, there is no significant change. Pericardial effusion is stable in size.
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
-s/p paracentesis 07/17/24 for 4500cc. No SBP, cytology NEG for malignant cells.
-had hypotension after paracentesis, albumin given, aldactone/norvasc on hold. Echo as above.
-GI following
Hepatic Lesion noted on CT scan:
-Abd MRI above
-AFP 1.96
-INR stable
-LFTs unremarkable
-Patient has been following with Dr. Kinney. Etiology of cirrhosis is unclear but there is a question of autoimmune hepatitis.
-medically cleared for discharge by GI. Cont Lasix/aldactone/low Na diet
Pericardial Effusion:
-Small/Moderate pericardial effusion seen on CT on admission and prior Echo from April
-echo above, pericardial effusion is stable from prior
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
-Holding sildenafil with hypotension earlier during hospitalization. Based on current blood pressure trend will restart on discharge with close monitoring of blood pressure outpatient.
-was on MTX in the pasted, no longer on it
-Continue pregabalin
Acute hypoxic respiratory insufficiency:
-pt was desaturating with ambulation, will likely need home O2
-likely due to ascites and deconditioning
-CXR from 07/16/24 reviewed. Pt afebrile and without leukocytosis. Highly doubt PNA. Will check AP/Lat CXR prior to discharge.
DNR/Lovenox
Medically cleared for discharge pending CXR results. Case management aware.
Anticipated Discharge: Today
Subjective/Interval History
-
Date of Service: July 19, 2024
No new complaints.
Objective Data
-
Vital Signs:
Vital Signs
Temp Pulse Resp BP Pulse Ox
98.3 F 68 20 114/54 95
07/19/24 07:30 07/19/24 07:30 07/19/24 07:30 07/19/24 07:30 07/19/24 08:10
I&O
07/18/24 07/19/24 07/20/24
06:59 06:59 06:59
Intake Total 240 / 240 880 / 880
Output Total 125 / 125 300 / 300
Balance 115 / 115 580 / 580
--- NOTE | 2024-07-19 13:24 | CM ---
Pt is on oxygen 1 liter Pox 92 %.
Will need home oxygen test.
Offered VN at id she requested VN Roxana Benites notified of referral.
Her friend will drive her home.
PLAN Home with [facility] for oxygen needs
--- NOTE | 2024-07-19 14:36 | PHA.VAN.IN ---
Assessment
- Assessment
Renal Function: Appears similar to baseline
Concomitant Antimicrobials: piperacillin/tazobactam
AUC Dosing Plan
- Dosing Variables
Dosing Weight (kg): 50
Dosing CrCl (ml/min): 57
Vd coefficient (L/kg): 0.7
- Empiric Dosing
Maintenance Regimen: Vanc 1000mg Q24H - first dose now then 07/20 0600 in lieu of load
Estimated AUC (mcg*h/mL): 567
Estimated Peak (mcg*h/mL): 40.2
Estimated Trough (mcg/ml): 12.2
Estimated Half Life (H): 13.4
- Monitoring
No levels ordered at this time: consider levels in next few days
MRSA Screen: Ordered per protocol
Pharmacokinetics Vancomycin I
- -
Patient Age: 79
Patient Sex: Female
Vancomycin Day #: 1
Indication: Pulmonary/Respiratory
Requesting Provider: Dr. Ford
Pertinent Antimicrobial Allergies:
NKDA
Height / Weight:
Height 5 ft 1 in
Actual Weight 50.349 kg
- Vital Signs / Lab Results
Temp Pulse Resp BP Pulse Ox
98.3 F 68 20 114/54 92
07/19/24 07:30 07/19/24 07:30 07/19/24 07:30 07/19/24 07:30 07/19/24 11:00
Lab Results - Hematology
07/17/24 07/18/24
05:22 05:59
WBC 5.8 6.3
Lab Results - Chemistry
07/17/24 07/18/24
05:22 05:59
BUN 11 10
Creatinine 0.7 0.6
Estimated Creat Clear 49 57
Albumin 2.4 L 2.4 L
Lab Results - Urine
07/17/24
07:03
Urine Nitrite (Reflex) Negative
Leukocyte Esterase Rfl 1+ A
Urine WBC (Reflex) 3-5
Ur Squamous Epith Cells 3-5
Microbiology Results
07/17/24 07:03 Urine Culture - Final
Urine Escherichia coli
07/17/24 10:57 Body Fluid Culture - Preliminary
Peritoneal Fluid No Growth After 48 Hours
Gram Stain - Preliminary
--- NOTE | 2024-07-19 14:37 | VNURNOTE ---
Home Health Liaison met with patient and friend at bedside to discuss [facility] nurse/therapy, visits, schedule and homebound status. Patient is agreeable and understands that visits at home will be 2-3 x per week to assess and teach medical management.
02 testing reviewed, pt did not qualify for home 02. Patient is aware that [facility] will contact them for start of care in 1-2 days after discharge from .
[facility] referral completed in [facility].
--- NOTE | 2024-07-19 14:50 | PN.CDI ---
CDI
- -
CDI:
Physician Documentation Request
Admit Date: 07/16/24 15:33
Dear Doctor Liliana,
07/18 and 07/19 hospitalist progress notes states 'appears chronically ill malnourished'
To ensure the quality of the medical record, based on the above information and the recognized standards for malnutrition , could you please verify in your progress notes which of the following responses best reflects the patient's nutritional
status:
(Specify severity) Malnutrition is/was present and is a clinical diagnosis (please provide additional support in the medical record)
No nutritional deficiency
Other (please specify)
Rossiter Criteria ([facility] Hospitalist 2017)
2 or more criteria must be present for either
non severe or severe malnutrition
Note that the criteria differs related to the
presence of an acute or chronic illness
Acute Illness Chronic Illness
Energy Intake Non Severe: <75% for >7 days Non Severe: <75% for >1 month
Severe: <50% for >5 days Severe: <75% for >1 month
Weight Loss Non Severe: 1-2% over 1 week Non Severe: 5% over 1 month
5% over 1 month 7.5% over 3 months
7.5% over 3 months 10% over 6 months
1 year N/A 20% over 1 year
Severe: >2% over 1 week Severe: >5% over 1 month
>5% over 1 month >7.5% over 3 months
>7.5% over 3 months >10% over 6 months
1 year N/A >20% over 1 year
Body Fat Non Severe: Mild Decrease Non Severe: Mild Loss
Severe: Moderate Decrease Severe: Severe Loss
Muscle Mass Non Severe: Mild Decrease Non Severe: Mild Loss
Severe: Moderate Decrease Severe: Severe Loss
Fluid Accumulation Non Severe: Mild Accumulation Non Severe: Mild Accumulation
Severe: Moderate to severe Severe: Moderate to severe
accumulation accumulation
Reduced Utilities Service Investigator Strength Non Severe: N/A Non Severe: N/A
Severe: Measurably reduced Severe: Measurably reduced
Use of terms such as suspected, likely, concern for, or probable (associated with a specific diagnosis that is being evaluated, monitored, or treated as if it exists) are acceptable and can be coded in the inpatient setting, when documented at the
time of discharge.
Thank you,
Florina Bassett RN, BSN
CDI Specialist
tiger text
Please use your independent medical judgment in providing your response.
--- NOTE | 2024-07-19 14:54 | PN.CDI ---
CDI
- -
CDI:
Physician Documentation Request
Admit Date: 07/16/24 15:33
Dear Doctor Liliana,
Urine culture positive for Escherichia coli.
UA results:
Laboratory Tests
07/17/24
07:03
Urine Color Yellow
Urine Clarity Clear
Ur Occult Blood Reflex Negative
Urine Nitrite (Reflex) Negative
Leukocyte Esterase Rfl 1+ A
Could you please provide a diagnosis that supports the above lab abnormalities and additional evaluation/ monitoring:
UTI
Asymptomatic bacteruria
Other
Use of terms such as suspected, likely, concern for, or probable (associated with a specific diagnosis that is being evaluated, monitored, or treated as if it exists) are acceptable and can be coded in the inpatient setting, when documented at the
time of discharge.
Thank you,
Florina Bassett RN, BSN
CDI Specialist
tiger text
Please use your independent medical judgment in providing your response.
[2024-07-19 15:17] VITALS: BP 117/50
[2024-07-19] MEDS: ZOSYN 50 IV (16:09)
--- NOTE | 2024-07-19 16:55 | CON.ID ---
Consultation
-
Date/Time Consultation Requested: 07/19/2024 1443
Date/Time Consultation Performed: 07/19/2024 1620
Requesting Provider: Dr. Ford
Performing Provider: Dr. Issa
Reason for Consultation: Pneumonia
Chief Complaint / Past History
History of Present Illness
Clementina Gifford is a 79-year-old female being evaluated at the request of Dr. Ford regarding pneumonia. History is obtained from chart review, along with patient interview.
The patient has an underlying history of systemic scleroderma (CREST) and presented to the emergency room on 07/16 for increased generalized weakness. On the day she found it difficult to get out of bed and she slid to the floor. ER reports that she
was hypoxic in the ER. She admits to some dry cough for the past 2 weeks, but no significant sputum. She denies any fevers or chills. She notes that she was having abdominal distention for the past 2 to 3 weeks, and when she had seen her
scleroderma and GI specialist they were only following it. Ultimately the distention became more pronounced and she came to the emergency room. She notes decreased oral intake secondary to the abdominal distention. Hospital course has been
significant for paracentesis, and she reports that she overall is feeling markedly improved. Admission chest x-ray noted a right middle lobe infiltrate, and repeat imaging has continued to show the reported infiltrate. She has been started on
empiric antibiotics, and Infectious Diseases asked to weigh in on further antimicrobial therapy.
Again at this time she denies any recent significant respiratory symptomatology. She notes that as of today, her cough has seemed to dissipate and any cough she had prior to admission was minimal. There has been no sputum production. She notes no
ill contacts.
Past History
Additional Past Medical History:
Systemic scleroderma (CREST)
Cirrhosis
Additional Past Surgical History:
Appendectomy
Hysterectomy
Tonsillectomy
Allergy History:
No Known Allergies Allergy (Verified 07/16/24 11:23)
Medications Reviewed: Yes
Current Antibiotics:
Vanco
Zosyn
Social History
Tobacco: Non-Smoker
Alcohol: None
Drug: None
Employment: Retired
Family History
Family History: Not Pertinent
Review of Systems
Vital Signs
Temp Pulse Resp BP Pulse Ox
97.8 F 66 18 117/50 94
07/19/24 15:17 07/19/24 15:17 07/19/24 15:17 07/19/24 15:17 07/19/24 15:17
Physical Exam
Physical Exam
Constitutional: No Acute Distress, Comfortable, Chronically Ill and Non-toxic
Eyes: Sclera Anicteric
Oral: No Thrush and No Ulcers
Cardiovascular: Regular Rate and S1/S2; Negative S3/S4
Pulmonary: Clear and Non Labored; Negative Wheezes or Rales
Gastrointestinal: Soft, Non Tender, Normal Bowel Sounds, No Rebound and No Guarding
Genito-Urinary: Negative Chavez
Extremities: Negative Edema, Cyanosis or Erythema
Skin: Warm and Dry
Neurological: Awake and Alert
Psychological: Calm
.
Lab / Diagnostic Study Results
07/18/24 05:59
07/18/24 05:59
Abs Immat Gran (auto) 0.1 10^3/uL (0-0.05) H 07/16/24 11:21
Absolute Neuts (auto) 6.2 10^3/uL (1.4-6.5) 07/16/24 11:21
Absolute Lymphs (auto) 0.5 10^3/uL (1.2-3.4) L 07/16/24 11:21
Absolute Monos (auto) 0.5 10^3/uL (0.1-0.6) 07/16/24 11:21
Absolute Basos (auto) 0.1 10^3/uL (0-0.2) 07/16/24 11:21
Immature Gran % 0.8 % (0-0.5) H 07/16/24 11:21
Neutrophils % 84.1 % (42.2-75.2) H 07/16/24 11:21
Lymphocytes % 6.2 % (20.5-51.1) L 07/16/24 11:21
Monocytes % 6.2 % (1.7-9.3) 07/16/24 11:21
Eosinophils % 2.0 % (0-6) 07/16/24 11:21
Basophils % 0.7 % (0-2) 07/16/24 11:21
PT 18.6 Sec (11.4-14.6) H 07/18/24 05:59
INR 1.52 07/18/24 05:59
Ur Squamous Epith Cells 3-5 /LPF (Few) 07/17/24 07:03
Microbiology Results
Micro:
07/19/24 14:50 Nasal Screen MRSA (PCR) - Final
Nose MRSA not detected - performed by PCR methodology.
07/17/24 07:03 Urine Culture - Final
Urine Escherichia coli
07/17/24 10:57 Body Fluid Culture - Preliminary
Peritoneal Fluid No Growth After 48 Hours
Gram Stain - Preliminary
Imaging:
07/19/2024 CXR (2 view): No visible pneumothorax. Small left pleural effusion. Small right pleural effusion. Mild airspace disease obscuring the right cardiac margin. Mild elevation of the right hemidiaphragm. Previous pneumonia versus
atelectasis in the right lower lobe is improved.
CT A/P 07/16/24: Large volume abdominopelvic ascites. Moderate pericardial effusion. Small bilateral pleural effusions, right greater than left. Hepatic cirrhosis. 1.2 cm enhancing lesion at the periphery of the posterior inferior right hepatic lobe.
This is concerning for a small hepatocellular carcinoma in the setting of hepatic cirrhosis. No prior imaging of the abdomen is currently available for direct comparison. A follow-up abdominal MRI without and with intravenous contrast is recommended
on a routine basis. Portal enteropathy.
Assessment / Plan
Abnormal CXR
- Doubt pneumonia as patient without any symptomatology
Ascites
- S/p paracentesis
Cirrhosis
Systemic scleroderma
Recommendations:
Patient currently without any symptomatology of respiratory infection.
Discontinue further further antibiotics.
Patient counseled to follow-up for the development of any respiratory symptomatology, including increasing cough, sputum production, fevers, chills, etc.
[2024-07-19] MEDS: LOVENOX 40 MG SC (17:26)
[2024-07-19 19:34] VITALS: BP 110/57
[2024-07-19 23:39] VITALS: BP 102/47
[2024-07-20 03:36] VITALS: BP 98/47
[2024-07-20 06:00] VITALS: BMI 20.7
[2024-07-20 07:53] VITALS: BP 103/54
[2024-07-20] MEDS: LYRICA 200 MG PO (08:22)
[2024-07-20] MEDS: ALDACTONE 50 MG PO (08:22)
[2024-07-20] MEDS: FOLVITE 1 MG PO (08:22)
[2024-07-20] MEDS: LASIX 20 MG PO (08:23)
[2024-07-20] MEDS: LOW STRENGTH ASPIRIN 81 MG PO (08:23)
--- NOTE | 2024-07-20 09:47 | W.PN.HOSP.TC ---
Today's Communication/Plan
-
d/c
Assessment / Plan
Assessment / Plan
Gen: remains NAD, AAOx3, appears chronically ill malnourished.
Eyes: EOMI, PERRLA, no scleral icterus.
Neck: supple.
CV: remains RRR, +S1/S2, no m/r/g.
Resp: CTAB anteriorly
Abd: +BS, soft, NT, moderate distention with ascites
Skin: No rashes. remains with tight skin consistent with scleroderma, sausage digits of the fingers
Neuro: CN 2-12 intact, non-focal.
Psych: Normal mood and affect.
CT A/P 07/16/24: Large volume abdominopelvic ascites. Moderate pericardial effusion. Small bilateral pleural effusions, right greater than left. Hepatic cirrhosis. 1.2 cm enhancing lesion at the periphery of the posterior inferior right hepatic lobe.
This is concerning for a small hepatocellular carcinoma in the setting of hepatic cirrhosis. No prior imaging of the abdomen is currently available for direct comparison. A follow-up abdominal MRI without and with intravenous contrast is recommended
on a routine basis. Portal enteropathy.
CXR 07/16/24: Small bilateral pleural effusions. Mild elevation of the right hemidiaphragm. Findings suggesting moderate right lower lobe pneumonia. Mild cardiomegaly.
CXR 07/18/24: Findings suggesting mild right middle lobe pneumonia. New. Small bilateral pleural effusions. Stable. Improved previous mild right lower lobe atelectasis versus pneumonia.
MRI abd 07/18/24:
1. SEVERE HEPATIC CIRRHOSIS.
2. 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
3. LARGE VOLUME ASCITES.
4. Moderate pericardial effusion.
5. Mild cardiomegaly.
6. Moderate-sized right pleural effusion.
7. Severe right lower lobe and moderate left lower lobe subpleural airspace consolidation.
8. Severe discogenic degenerative disease at L4/L5.
9. Severe anasarca.
Echo: Normal biventricular size and systolic function without regional wall motion abnormality. LVEF 60-65%. Moderate circumferential pericardial effusion without evidence of hemodynamic compromise. Mild aortic stenosis.
Mild tricuspid regurgitation. PASP 35-40 mmHg. Compared to prior echocardiogram in April 2024, there is no significant change. Pericardial effusion is stable in size.
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
-s/p paracentesis 07/17/24 for 4500cc. No SBP, cytology NEG for malignant cells.
-had hypotension after paracentesis, albumin given, aldactone/norvasc on hold. Echo as above.
-GI following
Hepatic Lesion noted on CT scan:
-Abd MRI above
-AFP 1.96
-INR stable
-LFTs unremarkable
-Patient has been following with Dr. Kinney. Etiology of cirrhosis is unclear but there is a question of autoimmune hepatitis.
-medically cleared for discharge by GI. Cont Lasix/aldactone/low Na diet
Pericardial Effusion:
-Small/Moderate pericardial effusion seen on CT on admission and prior Echo from April
-echo above, pericardial effusion is stable from prior
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
-Holding sildenafil with hypotension earlier during hospitalization. Based on current blood pressure trend will restart on discharge with close monitoring of blood pressure outpatient.
-was on MTX in the pasted, no longer on it
-Continue pregabalin
Acute hypoxic respiratory insufficiency:
-pt was desaturating with ambulation, will likely need home O2
-likely due to ascites and deconditioning
-CXRs from 07/16/24 and 07/18/24 reviewed. Pt afebrile and without leukocytosis. Highly doubt PNA. Dr. Issa agrees and abx have been stopped.
Asymptomatic bacteruria
Severe protein calorie malnutrition
DNR/Lovenox
Medically cleared for discharge. Case management aware.
Total time spent on d/c = 31 min. This included today's physical exam, progress note, review of laboratory and diagnostic data, preparation of discharge documents and prescriptions, and discussions about the pt's hospital course and discharge plan
with the patient and other medical attendant involved in the patient's care.
Anticipated Discharge: Today
Subjective/Interval History
-
Date of Service: July 20, 2024
No new complaints.
Objective Data
-
Vital Signs:
Vital Signs
Temp Pulse Resp BP Pulse Ox
98.5 F 76 18 103/54 92
07/20/24 07:53 07/20/24 08:22 07/20/24 07:53 07/20/24 08:22 07/20/24 07:53
I&O
07/19/24 07/20/24 07/21/24
06:59 06:59 06:59
Intake Total 880 / 880 1310 / 1310 480 / 480
Output Total 300 / 300
Balance 580 / 580 1310 / 1310 480 / 480
[2024-07-20 11:10] VITALS: BP 116/56
[2024-07-20 14:09] VITALS: PULSE 80; O2SAT 97
[2024-07-20 15:11] VITALS: BP 123/60
--- NOTE | 2024-07-20 15:32 | W.DCSUMMARY ---
Discharge Summary
Discharge Data
Date of Admission: 07/16/24
Date of Discharge: 07/20/24
-
Pending Results: No
Hospital Course
Primary diagnoses:
New Onset Ascites due to Cirrhosis (possibly autoimmune)
Secondary diagnoses:
Acute hypoxemic respiratory insufficiency likely due to ascites
Chronic moderate pericardial effusion
Asymptomatic bacteruria
Severe protein calorie malnutrition
Consultants:
Gastroenterology
Infectious disease
Imaging:
CT A/P 07/16/24: Large volume abdominopelvic ascites. Moderate pericardial effusion. Small bilateral pleural effusions, right greater than left. Hepatic cirrhosis. 1.2 cm enhancing lesion at the periphery of the posterior inferior right hepatic lobe.
This is concerning for a small hepatocellular carcinoma in the setting of hepatic cirrhosis. No prior imaging of the abdomen is currently available for direct comparison. A follow-up abdominal MRI without and with intravenous contrast is recommended
on a routine basis. Portal enteropathy.
CXR 07/16/24: Small bilateral pleural effusions. Mild elevation of the right hemidiaphragm. Findings suggesting moderate right lower lobe pneumonia. Mild cardiomegaly.
CXR 07/18/24: Findings suggesting mild right middle lobe pneumonia. New. Small bilateral pleural effusions. Stable. Improved previous mild right lower lobe atelectasis versus pneumonia.
MRI abd 07/18/24:
1. SEVERE HEPATIC CIRRHOSIS.
2. 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
3. LARGE VOLUME ASCITES.
4. Moderate pericardial effusion.
5. Mild cardiomegaly.
6. Moderate-sized right pleural effusion.
7. Severe right lower lobe and moderate left lower lobe subpleural airspace consolidation.
8. Severe discogenic degenerative disease at L4/L5.
9. Severe anasarca.
Echo: Normal biventricular size and systolic function without regional wall motion abnormality. LVEF 60-65%. Moderate circumferential pericardial effusion without evidence of hemodynamic compromise. Mild aortic stenosis.
Mild tricuspid regurgitation. PASP 35-40 mmHg. Compared to prior echocardiogram in April 2024, there is no significant change. Pericardial effusion is stable in size.
79-year-old female who presented with chief complaints of weakness and abdominal ascension as outlined in H&P done on admission. Hospital course by problem was:
New Onset Ascites due to Cirrhosis (possibly autoimmune): All imaging above. The patient underwent paracentesis 07/17/24 for 4500cc. Ascitic fluid was negative for SBP, cytology NEG for malignant cells. The patient had had hypotension after
paracentesis, albumin was given, and aldactone/norvasc were placed on on hold. Echo as above. Abdominal MRI above. Alpha-fetoprotein was normal at 1.96. INR was stable. LFTs were unremarkable. The patient had been following with Dr. Kinney.
Etiology of cirrhosis is unclear but there was a question of autoimmune hepatitis. Patient was placed on Lasix and her Aldactone was resumed. She was medically cleared for discharge by GI.
Pericardial Effusion: Echo above, pericardial effusion is stable from prior
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 On discharge it was restarted as her blood pressures improved.
Acute hypoxic respiratory insufficiency: This was likely due to ascites and deconditioning. At the time of discharge the patient did not require home oxygen. CXRs from 07/16/24 and 07/18/24 reviewed. Pt afebrile and without leukocytosis. Highly doubt
PNA. Dr. Issa agrees and abx have been stopped.
Discharge Plan
-
Patient Disposition: Home (Routine Discharge)
Discharge Diagnosis/Procedures: New Onset Ascites due to Cirrhosis
Condition: Good
Diet: Low Sodium
Activity: As tolerated
Driving Restrictions: As prior to admission
Bathing Restrictions: None
Blood Work: CMP, magnesium, CBC in 1 week, prescription from PCP
Specialty Instructions: Weigh Daily- Call MD for wt gain/loss 3 lbs overnight/5 lbs in 1 week
Referrals:
Shahid Ponce Jr., MD [Family Provider, Family Practice] - in less than 1 week
Prescriptions:
New
furosemide 20 mg Tablet
20 mg PO DAILY Qty: 30 0RF
spironolactone 50 mg Tablet
50 mg PO DAILY Qty: 30 0RF
Continued
folic acid 1 mg tablet
1 mg PO DAILY
albuterol sulfate 90 mcg/actuation HFA aerosol inhaler
2 puff INHALATION Q4HPRN PRN (Reason: shortness of breath)
sildenafil (pulm.hypertension) 20 mg tablet
20 mg PO BID
pregabalin 200 mg capsule
200 mg PO BID
ambrisentan 10 mg tablet
10 mg PO DAILY
aspirin 81 mg Tablet,Chewable
81 mg PO DAILY
Discontinued
spironolactone 100 mg tablet
100 mg PO DAILY
amlodipine 2.5 mg tablet
2.5 mg PO HS
methotrexate sodium 2.5 mg tablet
7.5 mg PO WEEKLY
Rx Instructions:
Weekly on Thursday
Discharge Orders:
Discharge Patient (As Directed); Ordered 07/20/24
Ordered By: Abrahan Ford
Discharge Date and Time
Print Language: [place]
--- NOTE | 2024-07-20 16:03 | CM ---
MD entered order for discharge
Pt weaned to room air Pox 95 %.
Pt said she was ready for discharge
[facility] Roxana Benites set up VN
Son Ed will drive her home.
Pt requested adv directive which was given to her
PLAN Home with VN
== END 2024-07-20 16:11 | disposition home health service (06) | DRG 432 ==
LOC: 4 EAST ACU 15:33
PROVIDERS: Hospitalist; Physician Assistant; Physician Assistant Medical; Radiology Vascular & Interventional Radiology; ADMITTING PHYSICIAN Internal Medicine; ATTENDING PHYSICIAN Internal Medicine; CONSULT PHYSICIAN Internal Medicine; EMERGENCY PHYSICIAN Emergency Medicine; OTHER PHYSICIAN Internal Medicine Infectious Disease
PROC: 0W9G3ZZ Drainage of Peritoneal Cavity, Percutaneous Approach (ICD-10-PCS; 2024-07-17)
DX: K74.69 Other cirrhosis of liver (principal); E43 Unspecified severe protein-calorie malnutrition; J18.9 Pneumonia, unspecified organism; R18.8 Other ascites; J90 Pleural effusion, not elsewhere classified; I31.39 Other pericardial effusion (noninflammatory); Z68.20 Body mass index [BMI] 20.0-20.9, adult; M34.1 CR(E)ST syndrome; M34.9 Systemic sclerosis, unspecified; I27.29 Other secondary pulmonary hypertension; R09.02 Hypoxemia; Z66 Do not resuscitate; R82.71 Bacteriuria; W19.XXXA Unspecified fall, initial encounter; Z79.82 Long term (current) use of aspirin; Z79.899 Other long term (current) drug therapy; Z90.710 Acquired absence of both cervix and uterus; K75.4 Autoimmune hepatitis
CPT/HCPCS: 88305; 93308; 49083; 71046; 74177; 74183; 80053; 81003; 81015; 82042; 82105; 82140; 82150; 82962; 83615; 83735; 83880; 84157; 84484; 85025; 85027; 85610; 87015; 87070; 87077; 87086; 87186; 87205; 87641; 88112; 89051; 93005; 93321; 93325; 97116; 97163; 97166; 97530; 97535; 99285; A9581; P9045; Q9967

== ENCOUNTER → 2024-09-20 07:41 | Outpatient (REF) | payer MEDICARE, SELFPAY | LOC: RAD 07:41 | PROVIDERS: ATTENDING PHYSICIAN Internal Medicine Gastroenterology | DX: K74.60 Unspecified cirrhosis of liver (principal) | CPT/HCPCS: 76700; 93975 ==